=== PATIENT | female | born 1945 | race Caucasian/White ===

== ENCOUNTER 2021-01-12 05:44 | Emergency (ER) | payer BC, MEDICARE ==
[2021-01-12] MEDS ORDERED: Ondansetron 4 MG/2 ML SDV IVPUSH ONE (06:33)
[2021-01-12] MEDS ORDERED: Sodium Chloride 0.9% 500 ML IV ONE (06:33)
--- NOTE | 2021-01-12 06:52 | EDM.PDOC ---
<Tim Hyde - Last Filed: 01/12/21 06:52> ED HPI GENERAL MEDICAL PROBLEM - General Chief Complaint: General Stated Complaint: BODY ACHES Time Seen by Provider: 01/12/21 06:15 - History of Present Illness INITIAL COMMENTS - FREE TEXT/NARRATIVE: Patient is a 75-year-old female no significant past medical history presenting with a chief complaint of body aches, loss of appetite, vomiting. Symptoms been ongoing since Thursday. She states she has not been able to keep anything down since Thursday. She has not taken any medications. Symptoms seem to be progressively worsening. She is not vaccinated against COVID-19. She is here with her who is also symptomatic for possible COVID-19 infection. Patient reports no past medical history does not take any medications on a regular basis. Denies any diarrhea. - Related Data Allergies Allergy/AdvReac Type Severity Reaction Status Date / Time Penicillins Allergy Itching Verified 01/12/21 05:57 Home Meds: Home Meds Potassium Chloride [Klor-Con M10] 10 meq PO BID #6 tab.er.prt 01/12/21 [Rx] Past Medical History - Past Surgical History GI Surgical History: Reports: Appendectomy, Other (See Below) Other GI Surgeries/Procedures: exploratory lap Social & Family History - Family History Family Medical History: No Pertinent Family History - Tobacco Use Tobacco Use Status *Q: Never Tobacco User Second Hand Smoke Exposure: No - Caffeine Use Caffeine Use: Reports: Soda - Recreational Drug Use Recreational Drug Use: No ED ROS GENERAL - Review of Systems Review Of Systems: See Below Free Text/Narrative/Comment: In addition to that documented in the HPI above, the additional ROS was obtained: Constitutional: Denies fevers or chills Eyes: Denies vision changes ENMT: Denies sore throat CV: Denies chest pain Resp: Denies SOB GI: Per HPI : Denies painful urination MSK: Denies recent trauma Skin: Denies new rashes Neuro: Denies new numbness or tingling or weakness Endocrine: Denies unexpected weight loss Heme: Denies bleeding disorders ED EXAM, GENERAL - Physical Exam Exam: See Below Free Text/Narrative:: I have reviewed the triage vital signs Const: Well nourished, well developed, appears stated age Eyes: Pupils Equal and reactive to light bilaterally, no conjunctival injection HENT: No signs of trauma or swelling, Neck supple without meningismus CV: Regular Rate Rhythm, Warm, well-perfused extremities RESP: Unlabored respiratory effort GI: soft, non-tender, non-distended, no masses MSK: No gross deformities appreciated Skin: Warm, dry. No rashes Neuro: Alert, produce manager II-XII grossly intact. Sensation and motor function of extremities grossly intact. Psych: Appropriate mood and affect. Course - Re-Assessments/Exams Free Text/Narrative Re-Assessment/Exam: 01/12/21 06:52 I spoke with this patient to provide information about antibiotic infusion. I offered them the patient and caregiver JENI back she to read and review state of the drug has been approved for emergency use authorization and has not been fully FDA reviewed or approved. The patient meets the [place] requirements I discussed the other potential treatment options that are currently not FDA approved to treat COVID-19. Offered opportunity to ask questions and all questions were answered Patient voiced understanding and agreed to proceed with treatment for COVID-19 Departure - Departure Disposition: Home, Self-Care 01 Clinical Impression: COVID-19, Decreased appetite, Hypokalemia - Discharge Information Referrals: Oliver Toribio MD [Primary Care Provider] - Forms: ED Department Discharge Additional Instructions: Return to the emergency room with any questions problems or worsening symptoms. Drink adequate amounts of fluids. And diet as tolerated. I started you on potassium you will take this for 3 days you may started tonight take 1 twice daily. Stay isolated for at least 10 days after the onset of symptoms. Preferably 4 days after you are absolutely symptom-free without the aid of medication. Consider getting the Covid vaccine check with your regular doctor or the health department for timing recommendations following your Covid infection. Sepsis Event Note (ED) - Evaluation Sepsis Screening Result: No Definite Risk <Selvin Vanessa - Last Filed: 01/12/21 09:27> Course - Vital Signs Last Recorded V/S: Last Vital Signs Temp 36.1 C 01/12/21 05:54 Pulse 80 01/12/21 05:54 Resp 18 01/12/21 05:54 BP 143/69 H 01/12/21 05:54 Pulse Ox 95 01/12/21 05:54 - Orders/Labs/Meds Orders: Active Orders 24 hr Category Date Time Status Vital Signs [RC] Q15M Care 01/12/21 06:55 Active EPINEPHrine [Adrenalin] Med 01/12/21 06:55 Active 0.3 mg IM ASDIRECTED PRN Famotidine [Pepcid] Med 01/12/21 06:55 Active 20 mg IVPUSH ASDIRECTED PRN Sodium Chloride 0.9% [Saline Flush] Med 01/12/21 07:00 Active 30 ml FLUSH ASDIRECTED diphenhydrAMINE [Benadryl] Med 01/12/21 06:55 Active 50 mg IVPUSH ASDIRECTED PRN methylPREDNISolone Sod Succ [Solu-MEDROL] Med 01/12/21 06:55 Active 125 mg IVPUSH ASDIRECTED PRN Medication Orders Diphenhydramine HCl (Diphenhydramine 50 Mg/Ml Sdv) 50 mg IVPUSH ASDIRECTED PRN PRN Reason: hypersensitivity reaction Epinephrine HCl (Epinephrine 1 Mg/Ml Sdv) 0.3 mg IM ASDIRECTED PRN PRN Reason: hypersensitivity reaction Famotidine (Famotidine 20 Mg/2 Ml Sdv) 20 mg IVPUSH ASDIRECTED PRN PRN Reason: hypersensitivity reaction Methylprednisolone Sodium Succinate (Methylprednisolone Sodium Succinate 125 Mg/2 Ml Sdv) 125 mg IVPUSH ASDIRECTED PRN PRN Reason: hypersensitivity reaction Sodium Chloride (Sodium Chloride 0.9% 10 Ml Syringe) 30 ml FLUSH ASDIRECTED TEE Labs: Laboratory Tests 01/12/21 01/12/21 01/12/21 Range/Units 06:03 06:37 06:37 WBC 3.85 L (3.98-10.04) K/mm3 RBC 4.28 (3.98-5.22) M/mm3 Hgb 14.2 (11.2-15.7) gm/dl Hct 41.8 (34.1-44.9) % MCV 97.7 H (79.4-94.8) fl MCH 33.2 H (25.6-32.2) pg MCHC 34.0 (32.2-35.5) g/dl RDW Std Deviation 42.5 (36.4-46.3) fL Plt Count 201 (182-369) K/mm3 MPV 9.2 L (9.4-12.3) fl Neut % (Auto) 79.4 H (34.0-71.1) % Lymph % (Auto) 10.6 L (19.3-51.7) % Crane % (Auto) 9.4 (4.7-12.5) % Eos % (Auto) 0 L (0.7-5.8) Baso % (Auto) 0.3 (0.1-1.2) % Neut # (Auto) 3.06 (1.56-6.13) K/mm3 Lymph # (Auto) 0.41 L (1.18-3.74) K/mm3 Crane # (Auto) 0.36 (0.24-0.36) K/mm3 Eos # (Auto) 0.00 L (0.04-0.36) K/mm3 Baso # (Auto) 0.01 (0.01-0.08) K/mm3 Sodium 132 L (136-145) mEq/L Potassium 3.1 L (3.5-5.1) mEq/L Chloride 95 L (98-107) mEq/L Carbon Dioxide 26 (21-32) mEq/L Anion Gap 14.1 (5-15) BUN 10 (7-18) mg/dL Creatinine 0.8 (0.55-1.02) mg/dL Est Cr Clr Drug Dosing 56.36 mL/min Estimated GFR (MDRD) > 60 (>60) mL/min BUN/Creatinine Ratio 12.5 L (14-18) Glucose 142 H (70-99) mg/dL Calcium 7.8 L (8.5-10.1) mg/dL Total Bilirubin 0.5 (0.2-1.0) mg/dL AST 27 (15-37) U/L ALT 24 (14-59) U/L Alkaline Phosphatase 59 (46-116) U/L C-Reactive Protein 3.4 H* (<1.0) mg/dL Total Protein 5.9 L (6.4-8.2) g/dl Albumin 3.4 (3.4-5.0) g/dl Globulin 2.5 gm/dL Albumin/Globulin Ratio 1.4 (1-2) Influenza Type A RNA Negative (NEGATIVE) Influenza Type B RNA Negative (NEGATIVE) SARS-CoV-2 RNA (ALANA) Positive H (NEGATIVE) Meds: Medications Generic Name Dose Route Start Last Admin Trade Name Freq PRN Reason Stop Dose Admin Diphenhydramine HCl 50 mg 01/12/21 06:55 Diphenhydramine 50 Mg/Ml Sdv IVPUSH ASDIRECTED PRN hypersensitivity reaction Epinephrine HCl 0.3 mg 01/12/21 06:55 Epinephrine 1 Mg/Ml Sdv IM ASDIRECTED PRN hypersensitivity reaction Famotidine 20 mg 01/12/21 06:55 Famotidine 20 Mg/2 Ml Sdv IVPUSH ASDIRECTED PRN hypersensitivity reaction Methylprednisolone Sodium Succinate 125 mg 01/12/21 06:55 Methylprednisolone Sodium Succinate 125 Mg/2 Ml Sdv IVPUSH ASDIRECTED PRN hypersensitivity reaction Sodium Chloride 30 ml 01/12/21 07:00 Sodium Chloride 0.9% 10 Ml Syringe FLUSH ASDIRECTED TEE Discontinued Medications Generic Name Dose Route Start Last Admin Trade Name Freq PRN Reason Stop Dose Admin Sodium Chloride 500 mls @ 1,000 mls/hr 01/12/21 06:33 01/12/21 06:48 Normal Saline IV 01/12/21 07:02 1,000 mls/hr .BOLUS ONE Administration SOTROVIMAB 500 mg/ Sodium 108 mls @ 216 mls/hr 01/12/21 06:55 Chloride IV 01/12/21 07:24 ONETIME ONE CASIRIVIMAB/IMDEVIMAB 10 ml/ 110 mls @ 220 mls/hr 01/12/21 06:57 01/12/21 07:38 Sodium Chloride IV 01/12/21 07:26 220 mls/hr ONETIME ONE Administration Ondansetron HCl 4 mg 01/12/21 06:33 01/12/21 06:48 Ondansetron 4 Mg/2 Ml Sdv IVPUSH 01/12/21 06:34 4 mg ONETIME ONE Administration Potassium Chloride 40 meq 01/12/21 07:23 01/12/21 07:38 Potassium Chloride 10 Meq Tab.Er PO 01/12/21 07:24 40 meq ONETIME ONE Administration - Re-Assessments/Exams Free Text/Narrative Re-Assessment/Exam: 01/12/21 07:24 Assumed care at change of shift labs reviewed potassium is low at 3.1 we will give 40 mEq of oral potassium at this time. She is due to start Regeneron in the next few minutes. 01/12/21 09:21 Patient is doing well she is nearly completed her infusion observation with no problems. She kept the potassium down without difficulty. I will go ahead and discharge her when the time comes. I will put her on potassium 10 mEq twice daily for 3 days. Departure - Departure Time of Disposition: 09:23 Sepsis Event Note (ED) - Focused Exam Vital Signs: Vital Signs Temp Pulse Resp BP Pulse Ox 01/12/21 05:54 36.1 C 80 18 143/69 H 95
[2021-01-12 06:54] LABS: CORONAVIRUS COVID-19 NAA POSITIVE (NEGATIVE)
[2021-01-12] MEDS ORDERED: diphenhydrAMINE 50 MG/ML SDV IVPUSH PRN (06:55)
[2021-01-12] MEDS ORDERED: Famotidine 20 MG/2 ML SDV IVPUSH PRN (06:55)
[2021-01-12] MEDS ORDERED: methylPREDNISolone Sodium Succinate 125 MG/2 ML SDV IVPUSH PRN (06:55)
[2021-01-12] MEDS ORDERED: EPINEPHrine 1 MG/ML SDV IM PRN (06:55)
[2021-01-12] MEDS ORDERED: Sodium Chloride 0.9% 10 ML Syringe FLUSH SCH (07:00)
[2021-01-12] MEDS ORDERED: Potassium Chloride 10 MEQ Tab.ER PO ONE (07:23)
== END 2021-01-12 09:41 | disposition home or self-care (01) ==
LOC: JD.ED 05:44
DX: U07.1 COVID-19 (principal); E87.6 Hypokalemia; Z88.0 Allergy status to penicillin
CPT/HCPCS: 0240U; 36415; 80053; 85025; 86140; 96374; 99284; A9270; J2405; J7030; M0243; Q0243